=== PATIENT | female | born 2000 | race African-American/Black ===

== ENCOUNTER 2023-08-31 10:30 | Emergency (ER) | payer BC ==
[~2023-08-31] VITALS: Ht 160 cm; Wt 95.3 kg
[2023-08-31] MEDS ORDERED: KETO10TA2 PO (13:33)
== END 2023-08-31 14:13 | disposition home or self-care (01) ==
LOC: ER 10:30
DX: S82.402A Unspecified fracture of shaft of left fibula, initial encounter for closed fracture (principal); W18.30XA Fall on same level, unspecified, initial encounter; Y93.9 Activity, unspecified; Y92.9 Unspecified place or not applicable; Y99.9 Unspecified external cause status